=== PATIENT | female | born 1990 | race Caucasian/White ===

== ENCOUNTER 2018-12-10 19:02 | Emergency (ER) | payer OTHER ==
--- NOTE | 2018-12-10 19:07 | PDOC ---
Rapid Medical Evaluation Chief Complaint: Rectal Bleed Time Seen by Provider: 12/10/18 19:04 Medical Evaluation: 12/10/18 19:05 28 year old female c/o ora blood stool c/o right sided abdominal pain x 4 days. denies constipation or straining pe: PATIENT alert ox3. A: blood in stool p: ua urine hcg, stool occult Discharge Disposition - Diagnosis Bloody stool - Referrals - Patient Instructions - Post Discharge Activity
[2018-12-10 19:15] VITALS: BMI 17.3
[2018-12-10 20:14] LABS: EPI CELLS 6.5 /HPF (0-5/HPF); HYALINE CASTS 3 /lpf (0-8); PH,URINE 5.5 (5.0-8.0); URINE APPEARANCE Error; URINE BACTERIA 138.7 /hpf (NEGATIVE); URINE BILIRUBIN NEGATIVE (NEGATIVE); URINE COLOR YELLOW; URINE GLUCOSE (UA) NEGATIVE (NEGATIVE); URINE KETONE NEGATIVE (NEGATIVE); URINE LEUK ESTERASE 1+ (NEGATIVE); URINE NITRITE NEGATIVE (NEGATIVE); URINE PROTEIN NEGATIVE (NEGATIVE); URINE RBC 10 /hpf (0-4); URINE UROBILINOGEN 0.2 mg/dL (0.2-1.0); URINE WBC 8 /hpf (0-5)
--- NOTE | 2018-12-10 20:54 | PDOC ---
History of Present Illness - General Chief Complaint: Rectal Bleed Stated Complaint: BLOODY STOOL Time Seen by Provider: 12/10/18 19:04 History Source: Patient Exam Limitations: No Limitations Past History - Past Medical History Allergies/Adverse Reactions: Allergies Allergy/AdvReac Type Severity Reaction Status Date / Time No Known Allergies Allergy Verified 12/10/18 19:05 CVA: No COPD: No - Immunization History Immunization Up to Date: Yes - Suicide/Smoking/Psychosocial Hx Smoking History: Never smoked Information on smoking cessation initiated: No Hx Alcohol Use: No Drug/Substance Use Hx: No *Physical Exam - Vital Signs Last Vital Signs Temp Pulse Resp BP Pulse Ox 98.2 F 91 H 16 116/71 100 12/10/18 19:06 12/10/18 19:06 12/10/18 19:06 12/10/18 19:06 12/10/18 19:06 - Physical Exam General Appearance: No: Apparent Distress Respiratory/Chest: positive: Lungs Clear, Normal Breath Sounds. negative: Respiratory Distress Cardiovascular: positive: Regular Rhythm, Regular Rate, S1, S2. negative: Murmur Gastrointestinal/Abdominal: positive: Normal Bowel Sounds, Soft. negative: Tender, Distended, Guarding, Rebound Rectal Exam: positive: other (no anal fissure noted, no blood in vault noted). negative: melena, hemorrhoids Neurologic: positive: Alert, Normal Mood/Affect ED Treatment Course - ADDITIONAL ORDERS Additional order review: Laboratory Results 12/10/18 12/10/18 19:57 19:57 Urine Color Yellow Urine Appearance Error Urine pH 5.5 Ur Specific [place] 1.015 Urine Protein Negative Urine Glucose (UA) Negative Urine Ketones Negative Urine Blood 2+ H Urine Nitrite Negative Urine Bilirubin Negative Urine Urobilinogen 0.2 Ur Leukocyte Esterase 1+ H Urine WBC (Auto) 8 Urine RBC (Auto) 10 Urine Casts (Auto) 3 U Epithel Cells (Auto) 6.5 Urine Bacteria (Auto) 138.7 Urine HCG, Qual Negative Medical Decision Making - Medical Decision Making 28 y/o F hx of anxiety, depression presents with BRBPR x 4 days along with very mild RLQ pain x 2 days. Also with 2 episodes of loose stools (states at times it can be hard and at times, watery). Mentions this sort of abdominal pain 2 years ago and had colonoscopy and endoscopy done which were normal. Has FH of IBS; denies FH of colon cancer. Went to UC for evaluation of symptoms, was told she did not have hemorrhoids and advised GI follow-up. Denies fever, sob, cp, vomiting, urinary complaints, constipation, melena. Patient has not been sexually active for a long time. Patient took pictures of the episodes - BRPB noted on tissue paper, and small amount in toilet noted; no clots noted Patient appears comfortable with no abdominal pain Less suspicious for colitis Also unable to see any hemorrhoids or obvious anal fissure UCG negative Patient states already has a GI doctor whom she can see D/W Dr. Romero 12/10/18 20:54 *DC/Admit/Observation/Transfer Diagnosis at time of Disposition: Bloody stool - Discharge Dispostion Disposition: HOME Condition at time of disposition: Stable Decision to Admit order: No - Referrals Referrals: Margie Mujica MD [Primary Care Provider] - - Patient Instructions Printed Discharge Instructions: DI for Rectal Bleeding Additional Instructions: Thank you for choosing [facility]. It was a pleasure taking care of you. Please follow-up with your GI doctor closely regarding your symptoms Return to the Emergency Department if your symptoms worsen or persist, you have fever, severe abdominal pain, vomiting, heavy rectal bleeding, black stools or other concerning symptoms. - Post Discharge Activity
[2018-12-10 21:17] VITALS: BP 110/70; PULSE 90; TEMP 98
--- NOTE | 2018-12-10 22:06 | PDOC ---
*Physical Exam - Vital Signs Last Vital Signs Temp Pulse Resp BP Pulse Ox 98 F 90 18 110/70 98 12/10/18 21:16 12/10/18 21:16 12/10/18 21:16 12/10/18 21:16 12/10/18 21:16 ED Treatment Course - ADDITIONAL ORDERS Additional order review: Laboratory Results 12/10/18 12/10/18 19:57 19:57 Urine Color Yellow Urine Appearance Error Urine pH 5.5 Ur Specific [place] 1.015 Urine Protein Negative Urine Glucose (UA) Negative Urine Ketones Negative Urine Blood 2+ H Urine Nitrite Negative Urine Bilirubin Negative Urine Urobilinogen 0.2 Ur Leukocyte Esterase 1+ H Urine WBC (Auto) 8 Urine RBC (Auto) 10 Urine Casts (Auto) 3 U Epithel Cells (Auto) 6.5 Urine Bacteria (Auto) 138.7 Urine HCG, Qual Negative Medical Decision Making - Medical Decision Making 12/10/18 22:05 Case discussed with CLAUDETTE Smith, agree with assessment and plan *DC/Admit/Observation/Transfer Diagnosis at time of Disposition: Bloody stool - Discharge Dispostion Disposition: HOME Condition at time of disposition: Stable - Referrals Referrals: Margie Mujica MD [Primary Care Provider] - - Patient Instructions Printed Discharge Instructions: DI for Rectal Bleeding Additional Instructions: Thank you for choosing [facility]. It was a pleasure taking care of you. Please follow-up with your GI doctor closely regarding your symptoms Return to the Emergency Department if your symptoms worsen or persist, you have fever, severe abdominal pain, vomiting, heavy rectal bleeding, black stools or other concerning symptoms. - Post Discharge Activity
== END 2018-12-10 21:17 | disposition home or self-care (01) ==
LOC: JER 19:02
DX: R92.1 Mammographic calcification found on diagnostic imaging of breast (principal)
CPT/HCPCS: 81003; 84703; 99282-25